=== PATIENT | female | born 1975 | race African-American/Black ===

== ENCOUNTER → 2021-10-03 | Outpatient (CLI) | payer OTHER ==
[~2021-10-03] MED LIST: ALBUTEROL NEB; AZITHROMYCIN 2250 MG PO; BENADRYL25 MG PO; EFFEXOR; FLEXERIL PO; NAPROSYN375 MG PO; NORCO 5-325 TA1 EACH PO; PREDNISONE 10 M10 MG PO; PROAIR HFA8.5 GM IH; SINGULAIR; ZYRTEC 10 MG TA10 MG PO
== END ==
LOC: M.LAB 07:20
PROVIDERS: ATTEND Podiatrist Foot & Ankle Surgery
DX: Z01.812 Encounter for preprocedural laboratory examination (principal); Z20.822 Contact with and (suspected) exposure to COVID-19